=== PATIENT | male | born 1995 | race Two or more races ===

== ENCOUNTER 2025-07-31 01:27 | Emergency (ER) | payer MEDICAID, OTHER ==
[~2025-07-31] VITALS: Ht 177.8 cm; Wt 59.5 kg
--- NOTE | 2025-07-31 02:22 | DVH ---
ULTRASOUND OF SCROTUM AND CONTENTS. INDICATION: torsion COMPARISON: None TECHNIQUE: Multiple real-time grayscale sonographic and color and duplex Doppler images of the scrotu m and its contents were obtained. FINDINGS: The right testicle measures 4.5 x 3.2 x 2.6 cm. The left testicle is moderately hypervascular, measuring 4.9 x 3.5 x 3.2 cm. Both testicles otherwise demonstrate homogeneous echotexture without evidence of focal lesions. Moderate left hydrocele. The right epididymis measures 1.3 cm. Right epididymal cyst measures 3 mm. The left epididymis is enlarged and hypervascular , measuring 2.1 cm. Subsequent color and duplex Doppler interrogation of the testes demonstrated symmetric normal vascula r flow to both testicles. IMPRESSION: 1. Findings consistent with left epididymoorchitis. 2. Right epididymal cyst. 3. Left hydrocele.
--- NOTE | 2025-07-31 02:25 | ED.PDOC ---
History of Present Illness HPI Comments 30 y/o M, with no significant history, presents with c/c of left testicular pain. Endorsement of 2x day history. Pain is reported to have, spontaneously, worsened, this morning. No reported recent injuries, sexual activities, or pertinent medical, surgical, family, or social history. Denial of any hematuria, penial pain, or further associated symptoms. Chief Complaint: Testicle Pain Time Seen by MD: 01:30 Reviewed Notes: Nurses Notes, Medications, Allergies Allergies: Coded Allergies: No Known Drug Allergy (Verified Allergy, Unknown, 07/31/25) Information Source: Patient Mode of Arrival: Ambulatory Severity: Moderate Timing: Days Duration: Since onset Prehospital treatment: None Past Medical History PAST MEDICAL HISTORY: Denies Surgical History: Denies all surgeries Social History Smoker: Non-Smoker Alcohol: Denies ETOH Use Drugs: Denies Drug Use Lives In: Home All Other Systems: Reviewed and Negative (Comprehensive review of systems are negative unless stated in HPI) Physical Exam General Appearance: Moderate Distress HEENT: Normal ENT Inspection, Pharynx Normal, TMs Normal Neck: Full Range of Motion, Non-Tender, Normal, Normal Inspection Respiratory: Chest Non-Tender, Lungs Clear, No Accessory Muscle Use, No Respiratory Distress, Normal Breath Sounds Cardiovascular: No Edema, No JVD, No Murmur, No Gallop, Normal Peripheral Pulses, Regular Rate/Rhythm Breast Exam: Deferred Gastrointestinal: No Organomegaly, Non Tender, No Pulsatile Mass, Normal Bowel Sounds, Soft Genitalia: Deferred Pelvic: Deferred Rectal: Deferred Extremities: No calf tenderness, Normal capillary refill, Normal inspection, Normal range of motion, Non-tender, No pedal edema Musculoskeletal : Apperance: Normal Neurologic: Alert, 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 Was a procedure done?: No Differential Dx Considerations may include: Torsion of testes, Torsion of testicular appendages, Testicular hematoma, Thrombosed varicocele, Inguinoscrotal hernia (obstructed/strangulated), Infective/inflammatory, Epididymitis, Epididymo-orchitis, Neuropathic/referred pain, Mid urethral stone X-Ray, Labs, Meds, VS Vital Signs Date Time Temp Pulse Resp B/P (MAP) Pulse Ox O2 Delivery O2 Flow Rate FiO2 07/31/25 01:28 100.0 112 20 111/74 99 100.0 Patient alert. Vitals stable. Came in because of testicular pain. Ambulating. Mild fever. Saturation pristine on room air. No leg swelling. Ultrasound reveals epididymitis. Was given prescription of amoxicillin clindamycin antibiotic. Explained to the patient. Was told to follow up with his primary care physician. Was told to come back if there is any problem. Time of 1ST Reevaluation: 02:20 Reevaluation 1ST: Unchanged Patient Education/Counseling: Need For Follow Up Family Education/Counseling: No Family Present SEPSIS Sepsis Screen Date sepsis recognized/suspect: Jul 31, 2025 Time Sepsis recognized/suspect: 129 Recent Procedure: No On Antibiotic Therapy: No Respiratory Rate >20: No Heart Rate >90: Yes Temp<36 C (96.8 F) or >38.3 C: No SBP <90 or MAP <65 mmHG: No New Acute Mental Status Change: No Is the patient on CPAP, BIPAP,: No Physician Orders Testicular Ultrasound (07/31/25 01:32) Vital Signs Date Time Temp Pulse Resp B/P (MAP) Pulse Ox O2 Delivery O2 Flow Rate FiO2 07/31/25 01:28 100.0 112 20 111/74 99 100.0 Departure 1 Departure Time of Disposition: 03:16 Impression: Primary Impression: Epididymitis Disposition: 01 HOME / SELF CARE / HOMELESS Condition: Good e-Prescriptions Clindamycin Hcl (Clindamycin Hcl) 300 Mg Cap 1 CAP PO TID for 10 Days, #30 CAP Prov: CARLEEN BARAJAS MD 07/31/25 Amoxicillin Trihydrate (Amoxicillin) 500 Mg Cap 1 CAP PO TID for 10 Days, #30 CAP Prov: CARLEEN BARAJAS MD 07/31/25 Discharged With: Self Critical Care Note Critical Care Time?: No Stability Stability form required: No Heart Score Heart Score: Heart Score Response (Comments) Value History N/A 0 EKG N/A 0 Age N/A 0 Risk Factors N/A 0 Troponin N/A 0 Total 0 I personally scribed for CARLEEN BARAJAS MD ([email or web address]) on 07/31/25 at 02:25. Electronically submitted by Anupam Shepard ([email or web address]). CARLEEN BARAJAS MD Jul 31, 2025 02:25
[2025-07-31] MEDS ORDERED: CLIN1CAP70 PO (03:17)
[2025-07-31] MEDS ORDERED: AMOX500C2 PO (03:17)
[2025-07-31 04:20] VITALS: BP 137/72; PULSE 99; RESP 20; TEMP 98.8; O2SAT 97
== END 2025-07-31 04:20 | disposition home or self-care (01) ==
LOC: ER 01:27
DX: N45.1 Epididymitis (principal); Z79.899 Other long term (current) drug therapy
CPT/HCPCS: 76870; 94640